=== PATIENT | female | born 1985 | race American Indian/Alaskan Native ===

== ENCOUNTER 2018-02-01 00:42 | Emergency (ER) | payer SELFPAY ==
[2018-02-01 00:48] VITALS: TEMP 98.9; O2SAT 98
[2018-02-01] MEDS ORDERED: Bacitracin Ointment 30 GM TUBE ONE (01:14)
[2018-02-01] MEDS ORDERED: Tdap Vaccine 0.5 ml Vial (10-64 yrs) IM ONE (02:03)
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
[2018-02-01 04:53] VITALS: BP 130/74; PULSE 86; RESP 20
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
== END 2018-02-01 05:04 ==
LOC: H.ER 00:42
DX: S00.83XA Contusion of other part of head, initial encounter (principal); S60.811A Abrasion of right wrist, initial encounter; Y04.0XXA Assault by unarmed brawl or fight, initial encounter; Y92.89 Other specified places as the place of occurrence of the external cause; F43.20 Adjustment disorder, unspecified; J32.9 Chronic sinusitis, unspecified; Z87.891 Personal history of nicotine dependence